=== PATIENT | female | born 1945 | race Caucasian/White ===

== ENCOUNTER 2020-08-15 19:40 | Emergency (ER) | payer MEDICARE, SELFPAY ==
[2020-08-15] VITALS (9 sets, daily range): BP systolic 214–241; BP diastolic 131–148; PULSE 96–119; RESP 13–24; TEMP 36.4; O2SAT 97–100
--- NOTE | ~2020-08-15 | XR_ITS ---
EXAMINATION: XR wrist LT 2V INDICATION: Left wrist fracture post reduction TECHNIQUE: Two views of the left wrist are obtained. COMPARISON: 2024 hours FINDINGS: A comminuted intra-articular fracture of the distal radius is again seen. Dorsal dislocatio n of the fracture fragments has been partially reduced. Dorsal angulation at the fracture site has al so been reduced to approximately 15 degrees. An ulnar styloid fracture is unchanged. A splint has bee n applied. Diffuse wrist soft tissue swelling is again noted. IMPRESSION: 1. Splinted and partially reduced comminuted distal radius fracture. 2. Unchanged ulnar styloid fracture. Reviewed, dictated and finalized at location A.
--- NOTE | ~2020-08-15 | XR_ITS ---
EXAMINATION: XR wrist LT 2V INDICATION: Left wrist pain, initial encounter TECHNIQUE: Two views of left wrist are obtained. COMPARISON: None available FINDINGS: There is comminuted intra-articular fracture of the distal radius with dorsal displacement of the fracture fragments. An oblique fracture of the radial styloid extends to the distal articular surface and results in lateral and dorsal displacement of the radial styloid. There are 30 degrees of dorsal angulation at the radius fractures. There is a transverse fracture of the ulnar styloid. 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 Wrist soft tissue swe lling is noted. IMPRESSION: 1. Comminuted intra-articular fracture of the distal radius with dorsal displacement and angulation a t the fracture site. 2. Ulnar styloid fracture. Reviewed, dictated and finalized at location A. IMPRESSION: 1. Comminuted intra-articular fracture of the distal radius with dorsal displac ement and angulation at the fracture site. 2. Ulnar styloid fracture.
--- NOTE | 2020-08-15 20:25 | ED.UPPEXIN ---
HPI - Extremity Injury (Upper) General Chief Complaint: Extremity Injury, Upper <Jesús Stephenson MD - Last Filed: 08/15/20 21:32> Stated Complaint: left wrist injury <Jesús Stephenson MD - Last Filed: 08/15/20 21:32> Time Seen by Provider: 08/15/20 20:14 <Jesús Stephenson MD - Last Filed: 08/15/20 21:32> Source: patient <Jesús Stephenson MD - Last Filed: 08/15/20 21:32> Mode of arrival: ambulatory <Jesús Stephenson MD - Last Filed: 08/15/20 21:32> Limitations: no limitations <Jesús Stephenson MD - Last Filed: 08/15/20 21:32> History of Present Illness HPI narrative: Patient is a 75-year-old female complaining of left wrist pain after she fell backwards while trying to get on a swing. Patient states that the table she was holding onto moved and that is why she fell. Patient denies any head, neck, back, chest, pelvis or any other extremity pain/injury. Patient states that she has not seen a doctor in 30 years and is now planning to see anyone soon, if it is my time then be it I wanted live long and be a vegetable . Patient's blood pressure is elevated, has not checked her blood pressure in years. I advised her that her blood pressure is high and states that she does not want anything for it. <Jesús Stephenson MD - Last Filed: 08/15/20 21:32> Related Data Allergies/Adverse Reactions: Allergies Allergy/AdvReac Type Severity Reaction Status Date / Time No Known Allergies Allergy Verified 08/15/20 19:52 <Jesús Stephenson MD - Last Filed: 08/15/20 21:32> Review of Systems Review of Systems: All systems reviewed & are unremarkable except as noted in HPI and below <Jesús Stephenson MD - Last Filed: 08/15/20 21:32> Constitutional: Constitutional: Denies body ache(s), Denies chills, Denies excessive sweating, Denies fatigue, Denies fever(s), Denies headache(s), Denies lethargy, Denies malaise, Denies weakness and Denies weight loss <Jesús Stephenson MD - Last Filed: 08/15/20 21:32> Eyes: Eyes: Denies blurry vision, Denies change in vision and Denies loss of vision <Jesús Stephenson MD - Last Filed: 08/15/20 21:32> ENT: Denies dizziness, Denies ear discharge, Denies headache(s), Denies lip swelling, Denies epistaxis, Denies nasal congestion, Denies neck pain, Denies throat swelling and Denies tongue swelling <Jesús Stephenson MD - Last Filed: 08/15/20 21:32> Cardiovascular: Cardiovascular: Denies chest pain, Denies chest pain at rest, Denies chest pain with activity, Denies diaphoresis, Denies rapid heart rate, Denies edema, Denies irregular heart rhythm, Denies lightheadedness, Denies palpitations, Denies dyspnea and Denies dyspnea on exertion <Jesús Stephenson MD - Last Filed: 08/15/20 21:32> Respiratory: Respiratory: Denies chest congestion, Denies cough, Denies hemoptysis, Denies dyspnea and Denies dyspnea on exertion <Jesús Stephenson MD - Last Filed: 08/15/20 21:32> Gastrointestinal: Gastrointestinal: Denies abdominal pain, Denies melena, Denies hematochezia, Denies diarrhea, Denies nausea, Denies vomiting and Denies hematemesis <Jesús Stephenson MD - Last Filed: 08/15/20 21:32> Musculoskeletal: Musculoskeletal: Denies abnormal gait, Denies neck pain and Denies numbness <Jesús Stephenson MD - Last Filed: 08/15/20 21:32> Neurologic: Denies Abnormal speech present, Denies abnormal gait, Denies confusion, Denies dizziness, Denies headache(s), Denies focal weakness, Denies loss of vision, Denies numbness, Denies Other visual disturbances, Denies Sensory deficit (Neuro) and Denies weakness <Jesús Stephenson MD - Last Filed: 08/15/20 21:32> Psychiatric: Psychiatric: Denies confusion, Denies depression, Denies auditory hallucinations, Denies homicidal ideation and Denies suicidal ideation <Jesús Stephenson MD - Last Filed: 08/15/20 21:32> Endocrine: Endocrine: Denies cold intolerance, Denies excessive sweating, Denies fatigue, Denies heat intole
--- NOTE | 2020-08-15 21:24 | PC.NURSE ---
Patient states she would like the [place] prior to discharge.
--- NOTE | 2020-08-15 21:28 | PC.NURSE ---
JORDYN Stephenson notified of patient's hypertension. Patient states she does not want it treated. JORDYN Stephenson aware. Per JORDYN Stephenson, no further intervention needed.
--- NOTE | 2020-08-15 21:41 | PC.NURSE ---
Patient refused [place] tablet.
== END 2020-08-15 21:45 | disposition home or self-care (01) ==
PROVIDERS: Emergency Provider Emergency Medicine
DX: S52.572A Other intraarticular fracture of lower end of left radius, initial encounter for closed fracture (principal); S52.612A Displaced fracture of left ulna styloid process, initial encounter for closed fracture; R03.0 Elevated blood-pressure reading, without diagnosis of hypertension; W09.1XXA Fall from playground swing, initial encounter
CPT/HCPCS: 25605; 73100; 99285